=== PATIENT | female | born 1945 | race Caucasian/White ===

== ENCOUNTER 2016-06-21 12:54 | Inpatient (IN) | payer MEDICARE, BC ==
[2016-06-21] MEDS ORDERED: IBUPROFEN 200 MG TAB PO STA (13:28)
[2016-06-21] MEDS ORDERED: ACETAMINOPHEN IV (For NPO) 1,000 MG in EMPTY BAG 1 BAG IVPB STA (13:37)
--- NOTE | 2016-06-21 13:37 | ED ---
General Adult HPI <Kaushal Boogie - Last Filed: 06/21/16 14:31> - General Source: patient, RN notes reviewed Mode of arrival: ambulatory Limitations: no limitations <Bree Isaac - Last Filed: 06/21/16 15:24> - General Chief complaint: Upper Respiratory Infection Stated complaint: Weakness Time Seen by Provider: 06/21/16 13:13 - History of Present Illness Initial comments: 71-year-old female presents with cough and sore throat. Patient states this started on 06/17/2016 and has gotten worse. Patient has been on a course of amoxicillin for this that was prescribed by [facility]. At [facility] visit the patient was swabbed for strep throat and this was negative. Patient currently has 6 days left of her amoxicillin. Patient has also been trying DayQuil and Mucinex with no improvement of symptoms. Patient has been taking Tylenol for fever symptoms. Patient states all she has been doing is sleeping. Patient also admits to nausea, vomiting and diarrhea. Patient denies hematochezia or hematemesis. Patient states she has been falling more frequently. Patient denies dizziness but states she loses her balance. Patient denies loss of consciousness or hitting her head. Patient denies any recent chest pain, abdominal pain, back pain, numbness, tingling, hematuria, headache, or visual changes, or any other complaints. (Bree Isaac) - Related Data Home Medications Medication Instructions Recorded Confirmed Amoxicillin 500 mg PO BID 06/21/16 06/21/16 D-Methorphan/Acetamin/Doxylamn 1 cap PO Q6H PRN 06/21/16 06/21/16 [Vicks Nyquil Liquicaps] D-Methorphan/PE/Acetaminophen 1 cap PO Q6H PRN 06/21/16 06/21/16 [Vicks Dayquil Liquicaps] Diphenox-Atrop 2.5-0.025 mg 1 tab PO QID PRN 06/21/16 06/21/16 [Lomotil] Promethazine HCl/Codeine 5 ml PO Q4H PRN 06/21/16 06/21/16 [Promethazine-Codeine Syrup] Allergies Allergy/AdvReac Type Severity Reaction Status Date / Time No Known Allergies Allergy Verified 06/21/16 13:51 Review of Systems ROS Other: All systems not noted in ROS Statement are negative. <Kaushal Boogie - Last Filed: 06/21/16 14:31> ROS Other: All systems not noted in ROS Statement are negative. <Bree Isaac - Last Filed: 06/21/16 15:24> ROS Statement: Those systems with pertinent positive or pertinent negative responses have been documented in the HPI. (KeaganKaushal) (Bree Isaac) Past Medical History Past Medical History: Hypertension History of Any Multi-Drug Resistant Organisms: None Reported Past Surgical History: Adenoidectomy, Appendectomy, Cholecystectomy, Hysterectomy, Tonsillectomy Additional Past Surgical History / Comment(s): right ankle Past Psychological History: No Psychological Hx Reported Smoking Status: Never smoker Past Alcohol Use History: Occasional Past Drug Use History: None Reported <Bree Isaac - Last Filed: 06/21/16 15:24> General Exam <Kaushal Boogie - Last Filed: 06/21/16 14:31> Limitations: no limitations <Bree Isaac - Last Filed: 06/21/16 15:24> - General Exam Comments Initial Comments: General: The patient is awake and alert, in no distress, and does not appear acutely ill. Eye: Pupils are equal, round and reactive to light, extra-ocular movements are intact. No nystagmus. There is normal conjunctiva bilaterally. No signs of icterus. Ears: TMs pink and pearly with intact cone light bilaterally. Normal external ear canals. Nose: White drainage present bilaterally, nasal turbinates are slightly erythematous. No pain with palpation of the maxillary or frontal sinuses. Mouth and throat: There are moist mucous membranes and no oral lesions. Neck: The neck is supple, there is no tenderness or JVD. Cardiovascular: There is a tachycardic rate and regular rhythm. No murmur, rub or gallop is appreciated. Respiratory: Rales heard to upper right lung roa, breath sounds are equal. No wheezes, stridor, or rhonchi. Gastrointestinal: Soft, non-distended, non-tender abdomen without masses or organomegaly noted. There is no rebound or guarding present. No CVA tenderness. Bowel sounds are unremarkable. Musculoskeletal: Normal ROM, no tenderness. Strength 5/5. Sensation intact. Radial pulses equal bilaterally 2+. Neurological: A&O x 3. CN II-XII intact, There are no obvious motor or sensory deficits. Coordination appears grossly intact. Speech is normal. Skin: Skin is warm and dry and no rashes or lesions are noted. Psychiatric: Cooperative, appropriate mood & affect, normal judgment. (Bree Isaac) EKG Findings - EKG Comments: EKG Findings:: EKG done at 1430 showing sinus tachycardia with premature atrial complexes. The rate 10 2 bpm, AK interval 1:30, QRS duration 92, QTc 474. No acute ST changes. <Bree Isaac - Last Filed: 06/21/16 15:24> Medical Decision Making - Lab Data Result diagrams: 06/21/16 13:35 06/21/16 13:35 <Kaushal Boogie - Last Filed: 06/21/16 14:31> - Lab Data Result diagrams: 06/21/16 13:35 06/21/16 13:35 <Bree Isaac - Last Filed: 06/21/16 15:24> - Medical Decision Making I evaluated the patient at bedside. Faint crepitant rales appreciated right side. Patient's been sick for 2 days. Febrile today at 102. Pulse ox 90% on room air. Patient's blood pressures systolic 160. Chest x-ray was done and reviewed by radiologist his findings are the lungs are clear and there is no pneumothorax, pleural effusion or focal pneumonia. Mild hypertrophic changes in the spine. Right perihilar and upper lobe area of consolidation noted. Impression; right perihilar and upper lobe area of infiltrate or neoplasm. Follow-up to resolution. As read by Dr. Roth I discussed the case with Dr. No, the patient's attending. Patient be admitted to his service started and continued on vancomycin and Levaquin per sepsis protocol. He requests consultation from Dr. Ruby, pulmonary medicine. Dr. Boogie (Kaushal Boogie) 71-year-old female who presents with cough. On physical exam there are faint rales in the upper lung roa. Respiratory rate is 22. Patient is a fever of 102. HEENT exam is within normal limits. Chest x-ray was done and reviewed showing: Right perihilar and upper lobe area of infiltrate or neoplasm. Follow-up to resolution. Report read by Dr. Roth. Labs were done on patient revealing elevated white blood cell count. Patient has elevated creatinine kinase cardiac enzymes and troponins are negative. Patient was given fluids and ofirmev for fever, and started on oxygen for decreasing O2 saturation. Patient was started on IV Levaquin and vancomycin. EKG done at 1430 showing sinus tachycardia with premature atrial complexes. The rate 102 bpm, AK interval 1:30, QRS duration 92, QTc 474. No acute ST changes. Discussed with patient and family results of x-ray. Patient will be admitted as an inpatient. Discussed this case with attending physician Dr. Boogie who agrees with plan stated above. (Bree Isaac) - Lab Data Lab Results 06/21/16 06/21/16 06/21/16 Range/Units 13:35 13:35 13:35 WBC 11.1 H (3.8-10.6) k/uL RBC 4.66 (3.80-5.40) m/uL Hgb 14.4 (11.4-16.0) gm/dL Hct 41.7 (34.0-46.0) % MCV 89.3 (80.0-100.0) fL MCH 30.9 (25.0-35.0) pg MCHC 34.6 (31.0-37.0) g/dL RDW 12.9 (11.5-15.5) % Plt Count 138 L (150-450) k/uL Neutrophils % 85 % Lymphocytes % 7 % Monocytes % 5 % Eosinophils % 0 % Basophils % 1 % Neutrophils # 9.5 H (1.3-7.7) k/uL Lymphocytes # 0.8 L (1.0-4.8) k/uL Monocytes # 0.6 (0-1.0) k/uL Eosinophils # 0.0 (0-0.7) k/uL Basophils # 0.1 (0-0.2) k/uL PT (9.0-12.0) sec INR (<1.1) APTT (22.0-30.0) sec Sodium 136 L (137-145) mmol/L Potassium 3.4 L (3.5-5.1) mmol/L Chloride 96 L (98-107) mmol/L Carbon Dioxide 26 (22-30) mmol/L Anion Gap 14 mmol/L BUN 16 (7-17) mg/dL Creatinine 0.83 (0.52-1.04) mg/dL Est GFR (MDRD) Af Amer >60 (>60 ml/min/1.73 sqM) Est GFR (MDRD) Non-Af >60 (>60 ml/min/1.73 sqM) Glucose 142 H (74-99) mg/dL Plasma Lactic Acid Brandt 1.8 (0.7-2.0) mmol/L Calcium 8.6 (8.4-10.2) mg/dL Total Bilirubin 0.8 (0.2-1.3) mg/dL AST 52 H (14-36) U/L ALT 56 H (9-52) U/L Alkaline Phosphatase 65 (38-126) U/L Total Creatine Kinase (30-135) U/L CK-MB (CK-2) (0.0-2.4) ng/mL CK-MB (CK-2) Rel Index Troponin I (0.000-0.034) ng/mL Total Protein 6.4 (6.3-8.2) g/dL Albumin 3.7 (3.5-5.0) g/dL 06/21/16 06/21/16 Range/Units 13:35 13:35 WBC (3.8-10.6) k/uL RBC (3.80-5.40) m/uL Hgb (11.4-16.0) gm/dL Hct (34.0-46.0) % MCV (80.0-100.0) fL MCH (25.0-35.0) pg MCHC (31.0-37.0) g/dL RDW (11.5-15.5) % Plt Count (150-450) k/uL Neutrophils % % Lymphocytes % % Monocytes % % Eosinophils % % Basophils % % Neutrophils # (1.3-7.7) k/uL Lymphocytes # (1.0-4.8) k/uL Monocytes # (0-1.0) k/uL Eosinophils # (0-0.7) k/uL Basophils # (0-0.2) k/uL PT 11.3 (9.0-12.0) sec INR 1.1 (<1.1) APTT 25.9 (22.0-30.0) sec Sodium (137-145) mmol/L Potassium (3.5-5.1) mmol/L Chloride (98-107) mmol/L Carbon Dioxide (22-30) mmol/L Anion Gap mmol/L BUN (7-17) mg/dL Creatinine (0.52-1.04) mg/dL Est GFR (MDRD) Af Amer (>60 ml/min/1.73 sqM) Est GFR (MDRD) Non-Af (>60 ml/min/1.73 sqM) Glucose (74-99) mg/dL Plasma Lactic Acid Brandt (0.7-2.0) mmol/L Calcium (8.4-10.2) mg/dL Total Bilirubin (0.2-1.3) mg/dL AST (14-36) U/L ALT (9-52) U/L Alkaline Phosphatase (38-126) U/L Total Creatine Kinase 1065 H (30-135) U/L CK-MB (CK-2) 2.4 (0.0-2.4) ng/mL CK-MB (CK-2) Rel Index 0.2 Troponin I 0.021 (0.000-0.034) ng/mL Total Protein (6.3-8.2) g/dL Albumin (3.5-5.0) g/dL (Kaushal Boogie) Disposition <Kaushal Boogie - Last Filed: 06/21/16 14:31> Decision Time: 14:59 <Bree Isaac - Last Filed: 06/21/16 15:24> Clinical Impression: Pneumonia Disposition: ADMITTED IP TO THIS [facility] Referrals: Carson No MD [Primary Care Provider] - 1-2 days
[2016-06-21] MEDS ORDERED: ONDANSETRON 4 MG/2 ML VIAL IVP STA (13:43)
[2016-06-21] MEDS: SODIUM CHLORIDE 0.9% 1,000 ML IV SCH (13:44)
[2016-06-21] MEDS ORDERED: IPRATROPIUM-ALBUTEROL 3 ML NEB INHALATION STA (13:57)
[2016-06-21] MEDS ORDERED: LEVOFLOXACIN 750MG-D5W PMX 750 MG in DEXTROSE/WATER 1 150ML.BAG IVPB STA (13:59)
--- NOTE | 2016-06-21 13:59 | XR ---
EXAMINATION TYPE: XR chest 2V DATE OF EXAM: 06/21/2016 1:51 PM COMPARISON: NONE HISTORY: Shortness of breath FINDINGS: The lungs are clear and there is no pneumothorax, pleural effusion, or focal pneumonia. Mild hypertr ophic change of the spine. Right perihilar and upper lobe area of consolidation noted. IMPRESSION: 1. Right perihilar and upper lobe area of infiltrate or neoplasm. Follow-up to resolution.
[2016-06-21] MEDS ORDERED: SODIUM CHLORIDE 0.9% 500 ML IV ONE (14:03)
[2016-06-21] MEDS ORDERED: IV VANCOMYCIN PER PHARMACY 1 EACH MISC MISCELLANE PRN ×3 (14:04→14:54)
[2016-06-21 14:13] LABS: Basophils # (A) 0.1 k/uL (0-0.2); Basophils % (A) 1 %; CH 31.3; CHCM 35.2; Eosinophils % (A) 0 %; HCT 41.7 % (34.0-46.0); HDW 2.78; HGB 14.4 gm/dL (11.4-16.0); Luc # (Auto) 0.21; Luc % (Auto) 2; Lymphocytes # (A) 0.8 k/uL (1.0-4.8); Lymphocytes % (A) 7 %; MCH 30.9 pg (25.0-35.0); MCHC 34.6 g/dL (31.0-37.0); MCV 89.3 fL (80.0-100.0); Mean Platelet Volume 8.4; Monocytes # (A) 0.6 k/uL (0-1.0); Monocytes % (A) 5 %; Neutrophils # (A) 9.5 k/uL (1.3-7.7); Neutrophils % (A) 85 %; RBC 4.66 m/uL (3.80-5.40); RDW 12.9 % (11.5-15.5); WBC 11.1 k/uL (3.8-10.6); WBC (Perox) 11.85
[2016-06-21 14:23] LABS: ALT 56 U/L (9-52); AST 52 U/L (14-36); Alkaline Phosphatase 65 U/L (38-126); Anion Gap 14 mmol/L; Blood Urea Nitrogen 16 mg/dL (7-17); Calcium 8.6 mg/dL (8.4-10.2); Carbon Dioxide 26 mmol/L (22-30); Chloride 96 mmol/L (98-107); Glucose 142 mg/dL (74-99); Non-African American GFR(MDRD) >60 (>60 ml/min/1.73 sqM); Potassium 3.4 mmol/L (3.5-5.1); Sodium 136 mmol/L (137-145); Total Bilirubin 0.8 mg/dL (0.2-1.3); Total Protein 6.4 g/dL (6.3-8.2)
[2016-06-21 14:30] LABS: INR 1.1 (<1.1); Partial Thromboplastin Time 25.9 sec (22.0-30.0); Prothrombin Time 11.3 sec (9.0-12.0)
[2016-06-21] MEDS ORDERED: VANCOMYCIN 1,500 MG in SODIUM CHLORIDE 0.9% 250 ML IVPB ONE (14:30)
[2016-06-21] MEDS ORDERED: ACETAMINOPHEN TAB 325 MG TAB PO PRN (14:40)
[2016-06-21] MEDS ORDERED: CALCIUM CARBONATE 500 MG CHEWABLE PO PRN (14:40)
[2016-06-21] MEDS ORDERED: NALOXONE 0.4 MG/ML 1 ML VIAL IV PRN (14:40)
[2016-06-21] MEDS ORDERED: PROCHLORPERAZINE 5 MG TAB PO PRN (14:40)
[2016-06-21 14:48] LABS: Creatine Kinase MB 2.4 ng/mL (0.0-2.4); Troponin I 0.021 ng/mL (0.000-0.034)
[2016-06-21] MEDS ORDERED: POTASSIUM CHLORIDE ER 20 MEQ TAB.ER PO STA (16:27)
--- NOTE | 2016-06-21 16:27 | P.CNPUL ---
History of Present Illness Consult date: 06/21/16 Reason for consult: pneumonia Chief complaint: Fever, cough History of present illness: This is a 71-year-old female who presented to the emergency department complaining of fever, cough, shortness of breath. The patient states she has been sick since . She went to urgent care and received amoxicillin and has taken it for 6 days. She is not feeling any better. She denies any sick contacts. She is a lifelong never smoker. She has no history of asthma or COPD. She uses no inhalers or nebulizer at home. She was found to have an oxygen saturation of 90% in the emergency room. She also had associated sore throat and sinus congestion. She did receive her flu vaccine this year and pneumonia vaccine within 2 years. Review of Systems All systems: negative Past Medical History Past Medical History: Hypertension History of Any Multi-Drug Resistant Organisms: None Reported Past Surgical History: Adenoidectomy, Appendectomy, Cholecystectomy, Hysterectomy, Tonsillectomy Additional Past Surgical History / Comment(s): right ankle Past Psychological History: No Psychological Hx Reported Smoking Status: Never smoker Past Alcohol Use History: Occasional Past Drug Use History: None Reported Medications and Allergies Home Medications Medication Instructions Recorded Confirmed Type Amoxicillin 500 mg PO BID 06/21/16 06/21/16 History D-Methorphan/Acetamin/Doxylamn 1 cap PO Q6H PRN 06/21/16 06/21/16 History [Vicks Nyquil Liquicaps] D-Methorphan/PE/Acetaminophen 1 cap PO Q6H PRN 06/21/16 06/21/16 History [Vicks Dayquil Liquicaps] Diphenox-Atrop 2.5-0.025 mg 1 tab PO QID PRN 06/21/16 06/21/16 History [Lomotil] Promethazine HCl/Codeine 5 ml PO Q4H PRN 06/21/16 06/21/16 History [Promethazine-Codeine Syrup] Allergies Allergy/AdvReac Type Severity Reaction Status Date / Time No Known Allergies Allergy Verified 06/21/16 13:51 Physical Exam Osteopathic Statement: *. No significant issues noted on an osteopathic structural exam other than those noted in the History and Physical/Consult. Vitals: Vital Signs Temp Pulse Pulse Resp BP BP Pulse Ox 06/21/16 15:54 98.7 F 99 18 140/72 96 06/21/16 15:14 99.2 F 101 H 18 141/82 97 Gen.: Patient is alert and oriented 3, no acute distress Cardiovascular: Regular rate and rhythm, S1/S2 Lungs: Coarse breath sounds bilaterally Abdomen: Soft nontender nondistended positive bowel sounds Extremities: No edema Results - Laboratory Findings CBC and BMP: 06/21/16 13:35 06/21/16 13:35 PT/INR, D-dimer PT 11.3 sec (9.0-12.0) 06/21/16 13:35 INR 1.1 (<1.1) 06/21/16 13:35 - Diagnostic Findings Chest x-ray: report reviewed, image reviewed Assessment and Plan Plan: Acute hypoxic respiratory failure Possible right middle lobe pneumonia SIRS with sepsis Cough Lifelong never smoker Dehydration Mild hypokalemia Slightly elevated transaminases Hyponatremia O2 to maintain saturation greater than or equal to 80% Antibiotics: Levaquin Bronchodilators DC Vanco, patient is community acquired pna DC Tylenol due to elevated LFTs IV fluid hydration Serial CXRc Monitor labs Replace potassium Sputum culture, blood culture Check influenza, Legionella, mycoplasma GI and DVT prophylaxis Incentive spirometry and pulmonary hygiene
[2016-06-21] MEDS ORDERED: ALBUTEROL NEBULIZED 2.5 MG/3 ML INHALATION PRN (17:20)
[2016-06-21] MEDS ORDERED: IPRATROPIUM 0.5 MG/2.5 ML NEBU INHALATION PRN (17:21)
[2016-06-21] MEDS ORDERED: guaiFENesin-DM 100-10MG/5ML 10 ML CUP PO PRN (17:22)
[2016-06-21] MEDS ORDERED: DIPHENOX-ATROP 2.5-0.025 MG 1 EACH TAB PO PRN (17:23)
[2016-06-21] MEDS ORDERED: IPRATROPIUM 0.5 MG/2.5 ML NEBU INHALATION SCH (20:00)
[2016-06-21] MEDS ORDERED: ALBUTEROL NEBULIZED 2.5 MG/3 ML INHALATION SCH (20:00)
[2016-06-21] MEDS: guaiFENesin-DM 100-10MG/5ML 10 ML CUP PO SCH (20:38)
[2016-06-21] MEDS: FAMOTIDINE 20 MG TAB PO SCH (20:39)
[2016-06-21] MEDS: IBUPROFEN 400 MG TAB PO PRN (20:58)
[2016-06-22] MEDS: SODIUM CHLORIDE 0.9% 1,000 ML IV SCH ×3 (00:30→20:13)
[2016-06-22] MEDS ORDERED: IPRATROPIUM-ALBUTEROL 3 ML NEB INHALATION PRN (04:05)
[2016-06-22] MEDS: IBUPROFEN 400 MG TAB PO PRN ×2 (04:27→20:13)
[2016-06-22] MEDS ORDERED: VANCOMYCIN 1,500 MG in SODIUM CHLORIDE 0.9% 250 ML IVPB SCH (06:00)
[2016-06-22 06:33] LABS: ALT 67 U/L (9-52); AST 73 U/L (14-36); Alkaline Phosphatase 54 U/L (38-126); Anion Gap 9 mmol/L; Blood Urea Nitrogen 15 mg/dL (7-17); Calcium 8.2 mg/dL (8.4-10.2); Carbon Dioxide 22 mmol/L (22-30); Chloride 107 mmol/L (98-107); Glucose 106 mg/dL (74-99); Non-African American GFR(MDRD) >60 (>60 ml/min/1.73 sqM); Potassium 3.9 mmol/L (3.5-5.1); Sodium 138 mmol/L (137-145); Total Bilirubin 0.7 mg/dL (0.2-1.3)
[2016-06-22 06:46] LABS: CHCM 34.1; HCT 37.5 % (34.0-46.0); HDW 2.84; HGB 12.7 gm/dL (11.4-16.0); MCH 30.9 pg (25.0-35.0); MCHC 33.9 g/dL (31.0-37.0); MCV 91.2 fL (80.0-100.0); Mean Platelet Volume 9.2; RBC 4.11 m/uL (3.80-5.40); RDW 12.9 % (11.5-15.5); WBC 11.3 k/uL (3.8-10.6)
[2016-06-22] MEDS: guaiFENesin-DM 100-10MG/5ML 10 ML CUP PO SCH ×2 (08:48→20:13)
[2016-06-22] MEDS: FAMOTIDINE 20 MG TAB PO SCH ×2 (08:48→20:13)
[2016-06-22] MEDS: LEVOFLOXACIN 750MG-D5W PMX 750 MG in DEXTROSE/WATER 1 150ML.BAG IVPB SCH (08:48)
[2016-06-22] MEDS: IPRATROPIUM-ALBUTEROL 3 ML NEB INHALATION SCH ×4 (08:50→19:46)
[2016-06-22 10:44] VITALS: BMI 29.2
[2016-06-22 12:16] LABS: Glucose,Whole Blood 92 mg/dL (75-99)
--- NOTE | 2016-06-22 14:22 | P.PN ---
Subjective Principal diagnosis: Pneumonia Patient seen and examined. Patient states she had a fever overnight. She is still wheezing and coughing. She is not yet feeling better. She is currently on room air. Objective - Vital Signs Vital signs: Vital Signs Temp 97.7 F 06/22/16 12:00 Pulse 96 06/22/16 13:17 Resp 19 06/22/16 13:17 BP 129/85 06/22/16 12:00 Pulse Ox 95 06/22/16 12:00 Intake & Output 06/21/16 06/22/16 06/22/16 18:59 06:59 18:59 Intake Total 120 240 Output Total 300 Balance -180 240 Weight 72.4 kg 72.4 kg Intake: Oral 120 240 Output: Urine 300 Other: Voiding Method Toilet Toilet # Voids 1 1 # Bowel Movements 1 - Exam Gen.: Patient is alert and oriented 3, no acute distress Cardiovascular: Regular rate and rhythm, S1/S2 Lungs: Coarse breath sounds bilaterally Abdomen: Soft nontender nondistended positive bowel sounds Extremities: No edema - Labs CBC & Chem 7: 06/22/16 05:53 06/22/16 05:53 Labs: Abnormal Lab Results - Last 24 Hours (Table) 06/22/16 06/22/16 Range/Units 05:53 05:53 WBC 11.3 H (3.8-10.6) k/uL Plt Count 111 L (150-450) k/uL Glucose 106 H (74-99) mg/dL Calcium 8.2 L (8.4-10.2) mg/dL AST 73 H (14-36) U/L ALT 67 H (9-52) U/L Total Protein 5.0 L (6.3-8.2) g/dL Albumin 2.8 L (3.5-5.0) g/dL Assessment and Plan Plan: Acute hypoxic respiratory failure Possible right middle lobe pneumonia SIRS with sepsis Cough Lifelong never smoker Dehydration Mild hypokalemia Slightly elevated transaminases Hyponatremia O2 to maintain saturation greater than or equal to 80% Antibiotics: Levaquin Bronchodilators DC Vanco, patient is community acquired pna DC Tylenol due to elevated LFTs IV fluid hydration Serial CXRc Monitor labs Replace potassium Sputum culture, blood culture Repeat CXR Check influenza, Legionella, mycoplasma GI and DVT prophylaxis Incentive spirometry and pulmonary hygiene
--- NOTE | 2016-06-22 14:50 | XR ---
EXAMINATION TYPE: XR chest 1V portable DATE OF EXAM: 06/22/2016 2:45 PM COMPARISON: 06/21/2016 HISTORY: Cough TECHNIQUE: Single frontal view of the chest is obtained. FINDINGS: There is an area of consolidation involving the right upper lobe which is stable or slight ly increased from the prior exam. Left lung remains clear. No pleural effusion or pneumothorax. Previ ous surgery involving the right upper quadrant of the abdomen. Arthropathy of the shoulders. IMPRESSION: 1. Right upper lobe pneumonia appears stable or slightly progressed.
[2016-06-22 17:46] LABS: Appearance,Urine Clear (Clear); Bacteria,Urine Rare /hpf; Bilirubin,Urine Negative (Negative); Glucose,Urine (UA) Negative (Negative); Ketones,Urine 2+ (Negative); Leukocyte Esterase,Urine Negative (Negative); Mucus,Urine Rare /hpf; Nitrite,Urine Negative (Negative); Particle Count 5759; Protein,Urine 1+ (Negative); RBC,Urine 1 /hpf (0-5); Squamous Epithelial Cell,Urine <1 /hpf (0-4); UA Billing (MACRO vs. MICRO) MICRO; Urobilinogen,Urine <2.0 mg/dL (<2.0); WBC,Urine 2 /hpf (0-5)
--- NOTE | 2016-06-22 17:53 | P.HPIM ---
History of Present Illness H&P Date: 06/22/16 Chief Complaint: Fever and shortness of breath. The patient is 71-year-old white female essentially went to urgent care Saturday and was given amoxicillin for perceived upper respiratory infection. She did not improve and started becoming weaker. Evaluation in the emergency room did show significant pneumonia. She is now admitted for appropriate treatment. Pulmonology has been consulted. She does feel as though she is stabilizing but has had no clinical significant improvement. Still significant dyspnea on exertion as stated. She is a nonsmoker. She denies any significant ethanol or substance abuse. She has not been "overdoing her activity." Review of Systems Constitutional: Reports chills, Reports fatigue, Reports fever Eyes: denies blurred vision, denies pain Ears, nose, mouth and throat: Denies headache, Denies sore throat Cardiovascular: Denies chest pain, Denies shortness of breath Respiratory: Reports congestion, Reports cough, Reports cough with sputum, Reports dyspnea Gastrointestinal: Denies abdominal pain, Denies diarrhea, Denies nausea, Denies vomiting Genitourinary: Denies dysuria, Denies hematuria Musculoskeletal: Denies myalgias Past Medical History Past Medical History: Hypertension Additional Past Medical History / Comment(s): STRESS INCONT OF URINE, "GETS LEGS CRAMPS" History of Any Multi-Drug Resistant Organisms: None Reported Past Surgical History: Adenoidectomy, Appendectomy, Cholecystectomy, Hysterectomy, Tonsillectomy Additional Past Surgical History / Comment(s): right ankle Past Anesthesia/Blood Transfusion Reactions: No Reported Reaction Past Psychological History: No Psychological Hx Reported Smoking Status: Never smoker Past Alcohol Use History: Occasional Past Drug Use History: None Reported - Past Family History Mother Family Medical History: Cancer Additional Family Medical History / Comment(s): LUNG CANCER Father Family Medical History: Cancer Medications and Allergies Home Medications Medication Instructions Recorded Confirmed Type D-Methorphan/Acetamin/Doxylamn 1 cap PO Q6H PRN 06/21/16 06/21/16 History [Vicks Nyquil Liquicaps] D-Methorphan/PE/Acetaminophen 1 cap PO Q6H PRN 06/21/16 06/21/16 History [Vicks Dayquil Liquicaps] Diphenox-Atrop 2.5-0.025 mg 1 tab PO QID PRN 06/21/16 06/21/16 History [Lomotil] Promethazine HCl/Codeine 5 ml PO Q4H PRN 06/21/16 06/21/16 History [Promethazine-Codeine Syrup] RX: Amoxicillin 500 mg PO BID 06/21/16 06/21/16 History Allergies Allergy/AdvReac Type Severity Reaction Status Date / Time No Known Allergies Allergy Verified 06/21/16 13:51 Physical Exam Vitals: Vital Signs Temp Pulse Pulse Resp BP Pulse Ox 06/22/16 16:42 98 06/22/16 16:29 94 06/22/16 15:27 98.3 F 104 H 18 162/68 95 06/22/16 13:17 96 19 06/22/16 12:00 97.7 F 100 16 129/85 95 06/22/16 09:00 98 06/22/16 08:52 97.7 F 88 16 137/58 100 06/22/16 08:45 96 06/22/16 04:00 102.3 F H 87 19 146/79 100 06/22/16 00:00 98.2 F 83 18 126/58 98 06/21/16 20:00 102.3 F H 103 H 18 164/69 96 06/21/16 19:24 100 06/21/16 19:12 100 Intake and Output 06/22/16 06/22/16 06/22/16 06:59 14:59 22:59 Intake Total 240 220 Output Total 300 Balance -60 220 Intake: Oral 240 220 Output: Urine 300 Other: Voiding Method Toilet Toilet Toilet # Voids 1 1 # Bowel Movements 1 Weight 72.4 kg 72.4 kg Patient Weight 06/23/16 06:59 Weight 72.4 kg - Constitutional General appearance: average body habitus - EENT Eyes: no abnormal pupil - Neck Neck: no lymphadenopathy - Respiratory Respiratory: right: rales - Cardiovascular Rhythm: regular Heart sounds: normal: S1, S2 - Gastrointestinal General gastrointestinal: soft, no tenderness - Integumentary Integumentary: no rash - Musculoskeletal Musculoskeletal: generalized weakness Results CBC & Chem 7: 06/22/16 05:53 06/22/16 05:53 Labs: Abnormal Lab Results - Last 24 Hours (Table) 06/22/16 06/22/16 06/22/16 Range/Units 05:53 05:53 17:15 WBC 11.3 H (3.8-10.6) k/uL Plt Count 111 L (150-450) k/uL Glucose 106 H (74-99) mg/dL Calcium 8.2 L (8.4-10.2) mg/dL AST 73 H (14-36) U/L ALT 67 H (9-52) U/L Total Protein 5.0 L (6.3-8.2) g/dL Albumin 2.8 L (3.5-5.0) g/dL Urine Protein 1+ H (Negative) Urine Blood Moderate H (Negative) Urine Bacteria Rare H (None) /hpf Urine Mucus Rare H (None) /hpf Chest x-ray: report reviewed Thrombosis Risk Factor Assmnt - Choose All That Apply Any of the Below Risk Factors Present?: Yes Each Factor Represents 1 point: Obesity (BMI >25), Serious lung disease incl. pneumonia (< 1month) Other Risk Factors: Yes Each Risk Factor Represents 2 Points: Age 61-74 years Other congenital or acquired thrombophilia - If yes, enter type in comment: No Thrombosis Risk Factor Assessment Total Risk Factor Score: 4 Thrombosis Risk Factor Assessment Level: Moderate Risk Assessment and Plan (1) Pneumonia Status: Acute (2) Hypertension Status: Acute (3) Hypertension Status: Acute Plan: Continue current regimen of antibiotic treatment. We'll give Ambien for insomnia as requested. Check CBC and CMP in a.m. Appreciate pulmonology input. Dr. Maria's group will be covering for the weekend.
[2016-06-23] MEDS: ZOLPIDEM 5 MG TAB PO PRN ×2 (00:30→20:48)
[2016-06-23] MEDS ORDERED: VANCOMYCIN 1,000 MG in SODIUM CHLORIDE 0.9% 250 ML IVPB STA (00:40)
[2016-06-23] MEDS ORDERED: IV VANCOMYCIN PER PHARMACY 1 EACH MISC MISCELLANE PRN (00:40)
[2016-06-23] MEDS: VANCOMYCIN 1,250 MG in SODIUM CHLORIDE 0.9% 250 ML IVPB SCH ×2 (02:36→17:59)
[2016-06-23] MEDS: SODIUM CHLORIDE 0.9% 1,000 ML IV SCH ×2 (06:36→16:53)
[2016-06-23 07:05] LABS: CH 30.7; CHCM 33.4; HCT 35.8 % (34.0-46.0); HDW 2.93; HGB 11.9 gm/dL (11.4-16.0); MCH 30.6 pg (25.0-35.0); MCHC 33.1 g/dL (31.0-37.0); MCV 92.4 fL (80.0-100.0); Mean Platelet Volume 9.2; RBC 3.87 m/uL (3.80-5.40); RDW 13.1 % (11.5-15.5); WBC 10.1 k/uL (3.8-10.6)
[2016-06-23] MEDS: IPRATROPIUM-ALBUTEROL 3 ML NEB INHALATION SCH ×4 (07:36→20:17)
[2016-06-23 07:42] LABS: ALT 71 U/L (9-52); AST 91 U/L (14-36); Alkaline Phosphatase 63 U/L (38-126); Anion Gap 8 mmol/L; Blood Urea Nitrogen 12 mg/dL (7-17); Calcium 8.5 mg/dL (8.4-10.2); Carbon Dioxide 27 mmol/L (22-30); Chloride 107 mmol/L (98-107); Glucose 96 mg/dL (74-99); Non-African American GFR(MDRD) >60 (>60 ml/min/1.73 sqM); Potassium 3.7 mmol/L (3.5-5.1); Sodium 142 mmol/L (137-145); Total Bilirubin 0.5 mg/dL (0.2-1.3)
[2016-06-23] MEDS: LEVOFLOXACIN 750MG-D5W PMX 750 MG in DEXTROSE/WATER 1 150ML.BAG IVPB SCH (08:42)
[2016-06-23] MEDS: FAMOTIDINE 20 MG TAB PO SCH ×2 (08:42→20:48)
[2016-06-23] MEDS: guaiFENesin-DM 100-10MG/5ML 10 ML CUP PO SCH ×2 (08:42→20:48)
[2016-06-23] MEDS: IBUPROFEN 400 MG TAB PO PRN ×2 (10:20→20:16)
--- NOTE | 2016-06-23 14:02 | P.PN ---
Subjective Principal diagnosis: Pneumonia Patient seen and examined. Patient had fever this morning. Patient was found to have gram-positive cocci in her blood. The patient states she is starting to feel better. She continues to cough. Objective - Vital Signs Vital signs: Vital Signs Temp 99.4 F 06/23/16 12:00 Pulse 98 06/23/16 12:00 Resp 18 06/23/16 12:00 BP 154/77 06/23/16 12:00 Pulse Ox 96 06/23/16 12:00 Intake & Output 06/22/16 06/23/16 06/23/16 18:59 06:59 18:59 Intake Total 460 100 240 Output Total 300 625 Balance 160 -525 240 Weight 72.4 kg 72.3 kg Intake: Oral 460 100 240 Output: Urine 300 625 Other: Voiding Method Toilet Toilet Toilet # Voids 1 1 1 # Bowel Movements 1 1 - Exam Gen.: Patient is alert and oriented 3, no acute distress Cardiovascular: Regular rate and rhythm, S1/S2 Lungs: Coarse breath sounds bilaterally Abdomen: Soft nontender nondistended positive bowel sounds Extremities: No edema - Labs CBC & Chem 7: 06/23/16 06:14 06/23/16 06:14 Labs: Abnormal Lab Results - Last 24 Hours (Table) 06/22/16 06/23/16 06/23/16 Range/Units 17:15 06:14 06:14 Plt Count 108 L (150-450) k/uL AST 91 H (14-36) U/L ALT 71 H (9-52) U/L Total Protein 5.0 L (6.3-8.2) g/dL Albumin 2.6 L (3.5-5.0) g/dL Urine Protein 1+ H (Negative) Urine Ketones 2+ H (Negative) Urine Blood Moderate H (Negative) Urine Bacteria Rare H (None) /hpf Urine Mucus Rare H (None) /hpf Microbiology - Last 24 Hours (Table) 06/22/16 05:53 Blood Culture Gram Stain - Preliminary Blood 06/22/16 16:25 Gram Stain - Preliminary Sputum 06/22/16 17:15 Urine Culture - Preliminary Urine,Voided 06/22/16 05:53 Blood Culture - Preliminary Blood Assessment and Plan Plan: Acute hypoxic respiratory failure Right upper lobe pneumonia, community-acquired Gram-positive cocci bacteremia SIRS with sepsis Cough Lifelong never smoker Dehydration Mild hypokalemia Slightly elevated transaminases Hyponatremia O2 to maintain saturation greater than or equal to 80% Antibiotics: Levaquin and vancomycin Consult infectious diseases Bronchodilators IV fluid hydration Serial CXRc Monitor labs Replace potassium Sputum culture, blood culture Check influenza negative, Legionella pending, mycoplasma pending GI and DVT prophylaxis Incentive spirometry and pulmonary hygiene
[2016-06-23] MEDS: SYMBICORT 160-4.5 MCG INHALER INHALATION SCH (20:17)
[2016-06-23] MEDS: HEPARIN SODIUM,PORCINE 5,000 UNIT/ML 1 ML VIAL SQ SCH (20:48)
[2016-06-23] MEDS: AZITHROMYCIN 500 MG in SODIUM CHLORIDE 0.9% 250 ML IVPB SCH (20:49)
[2016-06-24] MEDS: PANTOPRAZOLE 40 MG TABLET PO SCH (06:42)
[2016-06-24] MEDS: SODIUM CHLORIDE 0.9% 1,000 ML IV SCH ×4 (06:42→20:37)
[2016-06-24 07:38] LABS: Basophils % (A) 0 %; CH 30.6; CHCM 33.3; Eosinophils # (A) 0.1 k/uL (0-0.7); Eosinophils % (A) 1 %; HCT 33.3 % (34.0-46.0); HDW 2.97; HGB 11.3 gm/dL (11.4-16.0); Luc # (Auto) 0.22; Luc % (Auto) 3; Lymphocytes # (A) 1.2 k/uL (1.0-4.8); Lymphocytes % (A) 17 %; MCH 31.4 pg (25.0-35.0); MCHC 33.9 g/dL (31.0-37.0); MCV 92.4 fL (80.0-100.0); Mean Platelet Volume 9.9; Monocytes # (A) 0.4 k/uL (0-1.0); Monocytes % (A) 6 %; Neutrophils # (A) 4.9 k/uL (1.3-7.7); Neutrophils % (A) 73 %; RBC 3.61 m/uL (3.80-5.40); RDW 13.3 % (11.5-15.5); WBC 6.8 k/uL (3.8-10.6); WBC (Perox) 7.08
[2016-06-24 07:52] LABS: Anion Gap 10 mmol/L; Blood Urea Nitrogen 9 mg/dL (7-17); Calcium 8.1 mg/dL (8.4-10.2); Carbon Dioxide 24 mmol/L (22-30); Chloride 110 mmol/L (98-107); Glucose 94 mg/dL (74-99); Non-African American GFR(MDRD) >60 (>60 ml/min/1.73 sqM); Potassium 3.4 mmol/L (3.5-5.1); Sodium 144 mmol/L (137-145)
[2016-06-24] MEDS ORDERED: LEVOFLOXACIN 750 MG TAB PO SCH (09:00)
[2016-06-24] MEDS: IPRATROPIUM-ALBUTEROL 3 ML NEB INHALATION SCH ×6 (09:18→20:17)
[2016-06-24] MEDS: SYMBICORT 160-4.5 MCG INHALER INHALATION SCH ×2 (09:20→20:17)
--- NOTE | 2016-06-24 10:13 | PN ---
DATE OF SERVICE: 06/23/2016 I am covering for Dr. No. This 71-year-old woman who was admitted with fever and shortness of breath was thought to have right middle lobe pneumonia. The patient also running fever. Yesterday patient started on broad-spectrum IV antibiotics. Dr. Ruby is following the patient closely. The most recent chest x-ray as mentioned showed possible right middle and upper lobe pneumonias. PAST MEDICAL HISTORY: Reviewed. REVIEW OF SYSTEMS: CARDIOVASCULAR: As mentioned earlier. RESPIRATORY: As mentioned earlier. GI: No nausea. : No dysuria. NERVOUS SYSTEM: No numbness or weakness. Current medications are reviewed and include: 1. DuoNeb q.i.d. and p.r.n. 2. TUMS q.4. 3. Lomotil 1 q.i.d. p.r.n. 4. Pepcid 20 mg p.o. b.i.d. 5. Robitussin. 6. Motrin 400 mg q.6. 7. Levaquin 750 daily. 8. Narcan 0.2 q.2 p.r.n. 9. Compazine. 10. Vancomycin. 11. Ambien. PHYSICAL EXAMINATION: The patient is alert and oriented x3. Pulse 98, blood pressure 154/77, respirations 18, temperature 99.4, pulse ox 96% on room air. HEENT: Conjunctivae normal. NECK: No jugular venous distention. CARDIOVASCULAR: S1 and S2, muffled. RESPIRATORY: Breath sounds diminished at the bases. Bilateral scattered rhonchi and crackles. ABDOMEN: Soft, nontender. No mass palpable. LEGS: No edema, no swelling. NERVOUS SYSTEM: Higher function as mentioned. Moves all four limbs. No focal motor deficits. LYMPHATIC: No lymphadenopathy in the neck, axillae or groin. SKIN: No ulcer, rash or bleeding. LABS: WBC 10.1, platelets 108, AST 91, ALT 71. 2+ ketones. Influenza negative. ASSESSMENT: 1. Right upper lobe pneumonia, possibly community acquired with acute hypoxic respiratory failure, present on admission with possible sepsis. 2. Gram-positive bacteremia. 3. Hypertension. 4. Dehydration present on admission. 5. Increased AST, ALT; possibly mild acute hepatitis. 6. Mild hypoalbuminemia. 7. Thrombocytopenia . 8. Increased WBC, present on admission. 9. Nonsmoker. 10. History of adenoidectomy. 11. History of cholecystectomy. 12. FULL CODE. RECOMMENDATIONS AND DISCUSSION: This 71-year-old woman who presented with multiple complex medical issues, we will monitor the patient closely. Continue the current medications. Continue symptomatic treatment. Will continue the bronchodilators. Continue with empiric antibiotics. Vancomycin has been initiated. Chest x-ray was personally reviewed. I recommend intravenous Rocephin and Zithromax. Continue to monitor. Further recommendations to follow. Obtain cultures as well. MTDD
[2016-06-24] MEDS: HEPARIN SODIUM,PORCINE 5,000 UNIT/ML 1 ML VIAL SQ SCH ×2 (10:39→21:13)
[2016-06-24] MEDS: guaiFENesin-DM 100-10MG/5ML 10 ML CUP PO SCH ×2 (10:39→21:14)
[2016-06-24] MEDS: FAMOTIDINE 20 MG TAB PO SCH (10:39)
[2016-06-24] MEDS: VANCOMYCIN 1,250 MG in SODIUM CHLORIDE 0.9% 250 ML IVPB SCH (10:40)
[2016-06-24] MEDS: AZITHROMYCIN 500 MG in SODIUM CHLORIDE 0.9% 250 ML IVPB SCH (15:01)
[2016-06-24] MEDS ORDERED: POTASSIUM CHLORIDE ER 20 MEQ TAB.ER PO STA (15:32)
--- NOTE | 2016-06-24 15:34 | P.PN ---
Subjective Principal diagnosis: Pneumonia Patient seen and examined with family at bedside. Patient states she's starting to feel better. She has not had fevers overnight. She states her breathing and her cough are starting to improve. Objective - Vital Signs Vital signs: Vital Signs Temp 97.8 F 06/24/16 09:15 Pulse 84 06/24/16 12:20 Resp 16 06/24/16 12:20 BP 147/68 06/24/16 12:20 Pulse Ox 97 06/24/16 12:20 Intake & Output 06/23/16 06/24/16 06/24/16 18:59 06:59 18:59 Intake Total 892 1000 590 Output Total 450 Balance 892 1000 140 Weight 72 kg Intake: IV 1000 Sodium Chloride 0.9% 1, 1000 000 ml @ 100 mls/hr IV . Q10H [facility] Rx#:[id number] Oral 892 590 Output: Urine 450 Other: Voiding Method Toilet Toilet Toilet # Voids 2 3 400 # Bowel Movements 1 1 - Exam Gen.: Patient is alert and oriented 3, no acute distress Cardiovascular: Regular rate and rhythm, S1/S2 Lungs: Coarse breath sounds bilaterally Abdomen: Soft nontender nondistended positive bowel sounds Extremities: No edema - Labs CBC & Chem 7: 06/24/16 06:18 06/24/16 06:18 Labs: Abnormal Lab Results - Last 24 Hours (Table) 06/24/16 06/24/16 Range/Units 06:18 06:18 RBC 3.61 L (3.80-5.40) m/uL Hgb 11.3 L (11.4-16.0) gm/dL Hct 33.3 L (34.0-46.0) % Plt Count 118 L (150-450) k/uL Potassium 3.4 L (3.5-5.1) mmol/L Chloride 110 H (98-107) mmol/L Calcium 8.1 L (8.4-10.2) mg/dL Microbiology - Last 24 Hours (Table) 06/22/16 16:25 Gram Stain - Final Sputum Sputum Culture - Final 06/22/16 17:15 Urine Culture - Final Urine,Voided 06/22/16 05:53 Blood Culture Gram Stain - Preliminary Blood Blood Culture - Preliminary Coagulase Negative Staph Assessment and Plan Plan: Acute hypoxic respiratory failure Right upper lobe pneumonia, community-acquired Coag negative staph bacteremia SIRS with sepsis Cough Lifelong never smoker Dehydration Mild hypokalemia Slightly elevated transaminases Hyponatremia O2 to maintain saturation greater than or equal to 80% Antibiotics: Azithro/Rocephin and vancomycin Consult infectious diseases Bronchodilators IV fluid hydration Serial CXR Decrease IV fluids Monitor labs Replace potassium Sputum culture, blood culture Check influenza negative, Legionella pending, mycoplasma pending GI and DVT prophylaxis Incentive spirometry and pulmonary hygiene
--- NOTE | 2016-06-24 18:37 | PN ---
DATE OF SERVICE: 06/24/2016 I am covering for Dr. No. This 71-year-old woman was admitted with right upper lobe pneumonia, also had features of possible SIRS. The patient is feeling slightly better today. Afebrile. Patient on broad spectrum IV antibiotics. No chest pain, no palpitation no fever. On exam, alert and oriented x3. Pulse 95, blood pressure 150/78, respirations 18, temperature 97.8, pulse ox 98% on room air. HEENT: Conjunctivae normal. NECK: No jugular venous distention. HEART: S1 and S2, muffled. RESPIRATORY: Breath sounds diminished at the bases. Scattered rhonchi, no crackles. Respiratory wheezing. ABDOMEN: Soft, no tenderness. EXTREMITIES: Legs no edema, no swelling. LABS: Potassium 3.4. Other labs are noted. ASSESSMENT: 1. Right upper lobe pneumonia, possibly community acquired with acute hypoxic respiratory failure, present on admission with possible sepsis. 2. Gram-positive bacteremia with coagulase-negative staph. 3. Hypertension. 4. Dehydration present on admission. 5. Increased AST and ALT, possible mild acute hepatitis. 6. Hypoalbuminemia. 7. Thrombocytopenia. 8. Increased WBC present on admission. 9. Nonsmoker. 10. History of adenoidectomy. 11. History of cholecystectomy. 12. FULL CODE. Recommendations and discussion: Current medications, continue symptomatic treatment, continue broad spectrum antibiotics. Closely follow with Dr. nilay and Dr. No to follow. [facility]ITAL[facility]
[2016-06-24] MEDS: ZOLPIDEM 5 MG TAB PO PRN (21:17)
--- NOTE | 2016-06-24 22:27 | P.CONS ---
History of Present Illness - Reason for Consult Consult date: 06/24/16 - Chief Complaint pneumonia - History of Present Illness 71-year-old female presents with ongoing fever associated with cough generalized malaise and fatigue and shortness of breath. Patient relates that she was see at the local urgent care. There she was given amoxicillin and respiratory treatments.Because she was not improving she presented to the emergency center where she was found evidence of multilobar pneumonia. With evidence of ongoing pneumonia as well as a positive blood culture infectious diseases consultation was requested. This was relates that she is feeling slightly better today. Her fever started to improve this evening. She slightly less short of breath. She's having cough and wheezing. It is not having significant sputum production. She does not have hemoptysis. She generalized malaise was able to navigate to the restroom without difficulties. She's having no further chills or rigors. Was having those at home. Review of Systems HEENT:Denies headache or acute visual change. Denies sinus or mouth discomforts. Denies neck stiffness or pain. Denies significant oral cavity pain. Denies difficulty on swallowing. Lungs: as noted as positive shortness of breath Cardiovascular: Denies chest pain, chest wall pain, orthopnea, dyspnea on exertion, syncope Gastrointestinal:Denies nausea, vomiting, diarrhea, constipation, hematemesis, melena, hematochezia. No no significant change of bowel habit noticed. Musculoskeletal: denies significant myalgias or arthralgias. No new joint swelling. Denies new back pain. Skin: Denies new rash or lesions. No new ulcers or wounds are related.. Neuro: Denies headache or visual change. Denies any new onset weakness or difficulty with ambulation. Denies falls or seizures. Psychiatric:Denies anxiety or depression. Endocrine: significant fatigue without significant change of weight Past Medical History Past Medical History: Hypertension Additional Past Medical History / Comment(s): STRESS INCONT OF URINE, "GETS LEGS CRAMPS" History of Any Multi-Drug Resistant Organisms: None Reported Past Surgical History: Adenoidectomy, Appendectomy, Cholecystectomy, Hysterectomy, Tonsillectomy Additional Past Surgical History / Comment(s): right ankle Past Anesthesia/Blood Transfusion Reactions: No Reported Reaction Past Psychological History: No Psychological Hx Reported Additional Psychological History / Comment(s): . has adult children. retired. no experience. no travel. no new animal exposures Smoking Status: Never smoker Past Alcohol Use History: Occasional Past Drug Use History: None Reported - Past Family History Mother Family Medical History: Cancer Additional Family Medical History / Comment(s): LUNG CANCER Father Family Medical History: Cancer Medications and Allergies Home Medications and Allergies Comment(s): Current Medications Albuterol/Ipratropium (Duoneb 0.5 Mg-3 Mg/3 Ml Soln) 3 ml INHALATION RT-QID [facility] Last Admin: 06/24/16 20:17 Dose: 3 ml Albuterol/Ipratropium (Duoneb 0.5 Mg-3 Mg/3 Ml Soln) 3 ml INHALATION RT-Q2H PRN PRN Reason: Shortness Of Breath Or Wheezing Budesonide/Formoterol Fumarate (Symbicort 160-4.5 Mcg Inhaler) 2 puff INHALATION RT-BID [facility] Last Admin: 06/24/16 20:17 Dose: 2 puff Calcium Carbonate/Glycine (Tums) 1,000 mg PO Q4HR PRN PRN Reason: Dyspepsia Diphenoxylate HCl/Atropine (Lomotil) 1 each PO QID PRN PRN Reason: Diarrhea Guaifenesin/Dextromethorphan (Robitussin Dm) 5 ml PO BID [facility] Last Admin: 06/24/16 21:14 Dose: 5 ml Heparin Sodium (Porcine) (Heparin) 5,000 unit SQ Q12HR [facility] Last Admin: 06/24/16 21:13 Dose: 5,000 unit Sodium Chloride (Saline 0.9%) 1,000 mls @ 40 mls/hr IV .Q24H [facility] Last Admin: 06/24/16 20:37 Dose: Not Given Azithromycin 500 mg/ Sodium (Chloride) 250 mls @ 125 mls/hr IVPB DAILY@1200 [facility] Last Admin: 06/24/16 15:01 Dose: 125 mls/hr Ceftriaxone Sodium 1,000 mg/ (Sodium Chloride) 50 mls @ 100 mls/hr IVPB Q24HR [facility] Last Admin: 06/24/16 10:38 Dose: 100 mls/hr Ibuprofen (Motrin) 400 mg PO Q6HR PRN PRN Reason: Mild Pain or Fever > 100.5 Last Admin: 06/23/16 20:16 Dose: 400 mg Naloxone HCl (Narcan) 0.2 mg IV Q2M PRN PRN Reason: Opioid Reversal Pantoprazole Sodium (Protonix) 40 mg PO AC-BRKFST [facility] Last Admin: 06/24/16 06:42 Dose: 40 mg Prochlorperazine Maleate (Compazine) 5 mg PO Q8HR PRN PRN Reason: Nausea And Vomiting Zolpidem Tartrate (Ambien) 5 mg PO HS PRN PRN Reason: Insomnia Last Admin: 06/24/16 21:17 Dose: 5 mg Home Medications Medication Instructions Recorded Confirmed Type Amoxicillin 500 mg PO BID 06/21/16 06/21/16 History D-Methorphan/Acetamin/Doxylamn 1 cap PO Q6H PRN 06/21/16 06/21/16 History [Vicks Nyquil Liquicaps] D-Methorphan/PE/Acetaminophen 1 cap PO Q6H PRN 06/21/16 06/21/16 History [Vicks Dayquil Liquicaps] Diphenox-Atrop 2.5-0.025 mg 1 tab PO QID PRN 06/21/16 06/21/16 History [Lomotil] Promethazine HCl/Codeine 5 ml PO Q4H PRN 06/21/16 06/21/16 History [Promethazine-Codeine Syrup] Allergies Allergy/AdvReac Type Severity Reaction Status Date / Time No Known Allergies Allergy Verified 06/21/16 13:51 Physical Exam Vitals: Vital Signs Temp Pulse Pulse Resp BP Pulse Ox 06/24/16 20:26 84 06/24/16 20:20 84 06/24/16 16:42 82 18 139/71 98 06/24/16 12:20 84 16 147/68 97 06/24/16 09:15 97.8 F 95 18 150/70 98 06/24/16 04:00 98.0 F 93 18 150/72 97 06/24/16 00:00 98.1 F 97 17 151/82 94 L Intake and Output 06/24/16 06/24/16 06/24/16 06:59 14:59 22:59 Intake Total 1000 590 380 Output Total 450 Balance 1000 140 380 Intake: IV 1000 Sodium Chloride 0.9% 1, 1000 000 ml @ 100 mls/hr IV . Q10H [facility] Rx#:[id number] Oral 590 380 Output: Urine 450 Other: Voiding Method Toilet Toilet Toilet # Voids 3 400 # Bowel Movements 1 Weight 72 kg pleasant 71-year-old woman in no phoebe distress HEENT: Anicteric conjunctiva are pink and moist nasal mucosa grossly intact without significant lesions, there is no thrush. Neck: The neck is supple without significant lymphadenopathy or thyromegaly. Lungs: there is symmetrical air entry. Th Left chest with just some few wheez No dullness or changes of egophony. Heart: Regular rate and rhythm with an audible S1-S2, no S3 no S4. There is no significant murmur click or rub, PMI was nondisplaced. Abdomen: Positive bowel sounds soft and nontender without palpable masses or organomegaly. There was no guarding or rebound. Extremities: The upper extremities have excellent pulses they are symmetric, no significant petechiae or telangiectasia. No splinter hemorrhages were noted. The lower extremities are free from significant edema. The peripheral pulses were 2+ and symmetric. Neuro: Awake alert oriented to person place and time. There are no acute new gross focal sensory motor deficits. Results CBC & Chem 7: 06/24/16 06:18 06/24/16 06:18 Labs: Abnormal Lab Results - Last 24 Hours (Table) 06/24/16 06/24/16 Range/Units 06:18 06:18 RBC 3.61 L (3.80-5.40) m/uL Hgb 11.3 L (11.4-16.0) gm/dL Hct 33.3 L (34.0-46.0) % Plt Count 118 L (150-450) k/uL Potassium 3.4 L (3.5-5.1) mmol/L Chloride 110 H (98-107) mmol/L Calcium 8.1 L (8.4-10.2) mg/dL Microbiology - Last 24 Hours (Table) 06/22/16 05:53 Blood Culture Gram Stain - Final Blood Blood Culture - Final Staphylococcus epidermidis 06/22/16 16:25 Gram Stain - Final Sputum Sputum Culture - Final 06/22/16 17:15 Urine Culture - Final Urine,Voided Laboratory Results WBC 6.8 k/uL (3.8-10.6) 06/24/16 06:18 RBC 3.61 m/uL (3.80-5.40) L 06/24/16 06:18 Hgb 11.3 gm/dL (11.4-16.0) L 06/24/16 06:18 Hct 33.3 % (34.0-46.0) L 06/24/16 06:18 MCV 92.4 fL (80.0-100.0) 06/24/16 06:18 MCH 31.4 pg (25.0-35.0) 06/24/16 06:18 MCHC 33.9 g/dL (31.0-37.0) 06/24/16 06:18 RDW 13.3 % (11.5-15.5) 06/24/16 06:18 Plt Count 118 k/uL (150-450) L 06/24/16 06:18 Neutrophils % 73 % 06/24/16 06:18 Lymphocytes % 17 % 06/24/16 06:18 Monocytes % 6 % 06/24/16 06:18 Eosinophils % 1 % 06/24/16 06:18 Basophils % 0 % 06/24/16 06:18 Neutrophils # 4.9 k/uL (1.3-7.7) 06/24/16 06:18 Lymphocytes # 1.2 k/uL (1.0-4.8) 06/24/16 06:18 Monocytes # 0.4 k/uL (0-1.0) 06/24/16 06:18 Eosinophils # 0.1 k/uL (0-0.7) 06/24/16 06:18 Basophils # 0.0 k/uL (0-0.2) 06/24/16 06:18 PT 11.3 sec (9.0-12.0) 06/21/16 13:35 INR 1.1 (<1.1) 06/21/16 13:35 APTT 25.9 sec (22.0-30.0) 06/21/16 13:35 Sodium 144 mmol/L (137-145) 06/24/16 06:18 Potassium 3.4 mmol/L (3.5-5.1) L 06/24/16 06:18 Chloride 110 mmol/L (98-107) H 06/24/16 06:18 Carbon Dioxide 24 mmol/L (22-30) 06/24/16 06:18 Anion Gap 10 mmol/L 06/24/16 06:18 BUN 9 mg/dL (7-17) 06/24/16 06:18 Creatinine 0.68 mg/dL (0.52-1.04) 06/24/16 06:18 Est GFR (MDRD) Af Amer >60 (>60 ml/min/1.73 sqM) 06/24/16 06:18 Est GFR (MDRD) Non-Af >60 (>60 ml/min/1.73 sqM) 06/24/16 06:18 Glucose 94 mg/dL (74-99) 06/24/16 06:18 POC Glucose (mg/dL) 92 mg/dL (75-99) 06/22/16 11:45 POC Glu Weather Observer Letty Emmanuel 06/22/16 11:45 Plasma Lactic Acid Brandt 1.8 mmol/L (0.7-2.0) 06/21/16 13:35 Calcium 8.1 mg/dL (8.4-10.2) L 06/24/16 06:18 Total Bilirubin 0.5 mg/dL (0.2-1.3) 06/23/16 06:14 AST 91 U/L (14-36) H 06/23/16 06:14 ALT 71 U/L (9-52) H 06/23/16 06:14 Alkaline Phosphatase 63 U/L (38-126) 06/23/16 06:14 Total Creatine Kinase 1065 U/L (30-135) H 06/21/16 13:35 CK-MB (CK-2) 2.4 ng/mL (0.0-2.4) 06/21/16 13:35 CK-MB (CK-2) Rel Index 0.2 06/21/16 13:35 Troponin I 0.021 ng/mL (0.000-0.034) 06/21/16 13:35 Total Protein 5.0 g/dL (6.3-8.2) L 06/23/16 06:14 Albumin 2.6 g/dL (3.5-5.0) L 06/23/16 06:14 Cortisol 48 ug/dL 06/21/16 13:35 Urine Color Yellow 06/22/16 17:15 Urine Appearance Clear (Clear) 06/22/16 17:15 Urine pH 6.0 (5.0-8.0) 06/22/16 17:15 Ur Specific Clay 1.020 (1.001-1.035) 06/22/16 17:15 Urine Protein 1+ (Negative) H 06/22/16 17:15 Urine Glucose (UA) Negative (Negative) 06/22/16 17:15 Urine Ketones 2+ (Negative) H 06/22/16 17:15 Urine Blood Moderate (Negative) H 06/22/16 17:15 Urine Nitrate Negative (Negative) 06/22/16 17:15 Urine Bilirubin Negative (Negative) 06/22/16 17:15 Urine Urobilinogen <2.0 mg/dL (<2.0) 06/22/16 17:15 Ur Leukocyte Esterase Negative (Negative) 06/22/16 17:15 Urine RBC 1 /hpf (0-5) 06/22/16 17:15 Urine WBC 2 /hpf (0-5) 06/22/16 17:15 Ur Squamous Epith Cells <1 /hpf (0-4) 06/22/16 17:15 Urine Bacteria Rare /hpf (None) H 06/22/16 17:15 Urine Mucus Rare /hpf (None) H 06/22/16 17:15 Influenza Type A RNA Not Detected (Not Detectd) 06/21/16 16:54 Influenza Type B (PCR) Not Detected (Not Detectd) 06/21/16 16:54 Microbiology 06/21/16 13:35 Blood Blood Culture - Preliminary No Growth after 72 hours 06/22/16 05:53 Blood Blood Culture Gram Stain - Final 06/22/16 05:53 Blood Blood Culture - Final Staphylococcus epidermidis 06/22/16 16:25 Sputum Gram Stain - Final 06/22/16 16:25 Sputum Sputum Culture - Final 06/22/16 17:15 Urine,Voided Urine Culture - Final 06/22/16 05:53 Blood Blood Culture - Preliminary Assessment and Plan (1) Pneumonia Narrative/Plan: Pleasant 71-year-old woman presents to Hospital with evidence of a several-day history of significant fever with cough and sputum production. Seen in outpatient clinic and treated with amoxicillin respiratory treatments but has had no improvement. As he was admitted through the emergency center with evidence of multi lobar pneumonia. With current antibiotic therapy she is having some improvement. She still having cough and wheezing and responding to respiratory treatments. Is being followed by pulmonary critical care. With her improvement there is no thought of need of bronchoscopy. However there is no evidence of a possible culture. It is noted to be coagulase-negative staph in both cultures are from the same moment of dry also constantly is 1 culture. Follow cultures obtained and negative so far. Vancomycin therapy was started and is discontinued at this time. Antibiotic therapy with ceftriaxone and azithromycin are being utilized and are appropriate at this point in time. Evaluation for Legionella and mycoplasma are in process. Given her elevated liver function tests and her lack of response to amoxicillin therapy would make Legionella of concern. Follow blood culture is negative at this timeLeukocytosis is improving. Fevers improving. She is feeling somewhat better overall. As she improves in the next day or so be become a candidate for outpatient oral antibiotic therapy. Above testing will further help direct course of therapy. Status: Acute (2) Bacteremia due to coagulase-negative Staphylococcus Status: Acute (3) Fever Status: Acute (4) Leukocytosis Status: Acute
[2016-06-24] MEDS: IBUPROFEN 400 MG TAB PO PRN (23:25)
[2016-06-25] MEDS ORDERED: VANCOMYCIN TROUGH DUE 1 EACH MISC MISCELLANE ONE (01:00)
[2016-06-25] MEDS: PANTOPRAZOLE 40 MG TABLET PO SCH (06:45)
[2016-06-25] MEDS: IPRATROPIUM-ALBUTEROL 3 ML NEB INHALATION SCH ×2 (07:21→11:09)
[2016-06-25 07:51] LABS: Aty Lym Flag Slight; CH 30.7; CHCM 33.4; HCT 34.2 % (34.0-46.0); HDW 2.97; HGB 11.2 gm/dL (11.4-16.0); MCH 30.3 pg (25.0-35.0); MCHC 32.8 g/dL (31.0-37.0); MCV 92.4 fL (80.0-100.0); Mean Platelet Volume 8.7; RBC 3.69 m/uL (3.80-5.40); RDW 13.3 % (11.5-15.5); WBC 6.8 k/uL (3.8-10.6); WBC (Perox) 7.27
[2016-06-25 07:52] LABS: Anion Gap 8 mmol/L; Blood Urea Nitrogen 7 mg/dL (7-17); Calcium 8.3 mg/dL (8.4-10.2); Carbon Dioxide 28 mmol/L (22-30); Chloride 110 mmol/L (98-107); Glucose 98 mg/dL (74-99); Non-African American GFR(MDRD) >60 (>60 ml/min/1.73 sqM); Potassium 3.7 mmol/L (3.5-5.1); Sodium 146 mmol/L (137-145)
[2016-06-25] MEDS: guaiFENesin-DM 100-10MG/5ML 10 ML CUP PO SCH (09:22)
[2016-06-25] MEDS: HEPARIN SODIUM,PORCINE 5,000 UNIT/ML 1 ML VIAL SQ SCH (09:22)
[2016-06-25 09:24] LABS: Add Differential Manual Differential
[2016-06-25 09:28] LABS: Band Neutrophils % 0.5 %; Manual Review Performed; Metamyelocytes % 0.5 %; Nucleated Red Blood Cells 0 /100 WBC (0-0); Total Cells Counted 200
[2016-06-25 09:29] LABS: RBC Morphology Normal
[2016-06-25] MEDS: SYMBICORT 160-4.5 MCG INHALER INHALATION SCH (11:09)
--- NOTE | 2016-06-25 11:59 | P.DS ---
Providers Date of admission: 06/21/16 14:40 Attending physician: Carson No Consults: 06/23/16 14:01 Consult Physician Routine Consulting Provider: Ramu Jacques Consult Reason/Comments: bacteremia, G+ cocci Do you want consulting provider notified?: Yes Primary care physician: Carson No - Discharge Diagnosis(es) (1) Pneumonia Current Visit: Yes Status: Acute (2) Hypertension Current Visit: Yes Status: Acute (3) Hypertension Current Visit: Yes Status: Acute Hospital Course: This is a discharge summary 71-year-old white female essentially admitted for pneumonia. She is doing quite well and now ambulating tolerate diet without difficulty. We will go ahead and discharge her on appropriate antibiotic treatment and follow-up with her in about one week. She is stable from a prognostic indicator and have told her to basically rest. Plan - Discharge Summary New Discharge Prescriptions: Cefuroxime Axetil [Ceftin] 500 mg PO BID #14 tab Discharge Medication List D-Methorphan/Acetamin/Doxylamn [Vicks Nyquil Liquicaps] 1 cap PO Q6H PRN [History] D-Methorphan/PE/Acetaminophen [Vicks Dayquil Liquicaps] 1 cap PO Q6H PRN [History] Diphenox-Atrop 2.5-0.025 mg [Lomotil] 1 tab PO QID PRN 06/21/16 [History] Promethazine HCl/Codeine [Promethazine-Codeine Syrup] 5 ml PO Q4H PRN 06/21/16 [ History] Cefuroxime Axetil [Ceftin] 500 mg PO BID #14 tab 06/25/16 [Rx] Ibuprofen [Motrin] 400 mg PO Q6HR PRN #0 tab 06/25/16 [Rx] Follow up Appointment(s)/Referral(s): Carson No MD [Primary Care Provider] - 1 Week Discharge Disposition: HOME SELF-CARE
[2016-06-25 12:59] VITALS: RESP 18
[2016-06-25 13:11] VITALS: BP 157/67; PULSE 77; TEMP 96.7
[2016-06-26 05:36] LABS: Mycoplasma IgG Antibody (EIA) 1.87 INDEX (<=0.90); Mycoplasma IgM Antibody 0.51 INDEX (<=0.90)
--- NOTE | 2016-07-02 13:38 | CDI ---
In responding to this query, please exercise your independent professional judgment. The [facility] Coding Staff and Clinical Documentation Specialists appreciate your assistance in clarifying documentation, maintaining compliance with coding guidelines, accurately documenting patients condition and capturing severity of illness. The fact that a question is asked does not imply that any particular answer is desired or expected. Communication forms are a method of clarifying documentation and are not made part of the Legal Health Record. Thank you in advance for your clarification. Last Revision, April 2015 [employer] [address] [facility] [place] [address] Documentation Clarification Form Date: 07/02/2016 1:11:00 PM From: Pam Marlene Phone: Admit Date: 06/21/2016 2:40:00 PM Patient Name: Loulou Goldberg Visit Number: [id number] Discharge Date: Dr. Carson No SIRS with possible sepsis is documented in the progress notes and in Dr. Dumont 's consult note. Patient history/risk factors: Patient had pneumonia and acute respiratory failure. Lab findings: Blood culture revealed gram positive bacteremia, WBC 11.1 on admit, Lactic acid 1.8 Vital Signs: T. 102.3 on admit, P 104 on day of admit, R. 22 on admit Treatment: Azythromycin IV, Ceftriaxone IV, Levofloxacin IV In your professional opinion, can you please clarify if Sepsis was Ruled In or Ruled Out? Other Unable to determine Please document in your progress notes and discharge summary in order to capture severity of illness and risk of mortality. Include clinical findings that support your diagnosis. FYI: Press F11 to launch patient chart. Place X here if this finding has no clinical significance, is not applicable or if you are not able to provide any additional documentation. SARIAHD
== END 2016-06-25 13:14 | disposition home or self-care (01) | DRG 871 ==
LOC: EC 12:54 → 6SEL 14:40
PROVIDERS: ADMIT Family Medicine; ATTEND Family Medicine
DX: A41.89 Other specified sepsis (principal); J18.9 Pneumonia, unspecified organism; J96.01 Acute respiratory failure with hypoxia; E87.1 Hypo-osmolality and hyponatremia; D69.6 Thrombocytopenia, unspecified; E88.09 Other disorders of plasma-protein metabolism, not elsewhere classified; E86.0 Dehydration; I10 Essential (primary) hypertension; G47.00 Insomnia, unspecified; R29.6 Repeated falls; R79.89 Other specified abnormal findings of blood chemistry; J02.9 Acute pharyngitis, unspecified; E87.6 Hypokalemia
CPT/HCPCS: 36415; 71010; 71020; 80048; 80053; 81001; 82533; 82550; 82553; 83605; 84484; 85025; 85027; 85610; 85730; 86738; 87040; 87070; 87077; 87086; 87186; 87205; 87449; 87502; 93005; 94640; 94760; 96365; 96375; 99284

== ENCOUNTER 2017-07-22 14:07 | Emergency (ER) | payer MEDICARE, BC ==
[2017-07-22] MEDS ORDERED: HYDROmorphone 2 MG/ML 1 ML SYRINGE IM STA (14:47)
--- NOTE | 2017-07-22 14:52 | ED ---
Fall HPI - General Chief Complaint: Fall Stated Complaint: fall/shoulder injury Time Seen by Provider: 07/22/17 14:24 Source: patient, RN notes reviewed, old records reviewed Mode of arrival: ambulatory - History of Present Illness Initial Comments: This patient is a 72-year-old female presents emergency department today chief complaint of right shoulder pain. She reports she was shoveling the snow slipped and fell and injured her shoulder. She reports that she has no other injuries associated with the fall. No head injury or loss of consciousness or neck injury. Patient states that she is having severe pain with range of motion of her shoulder. Patient states that she came directly here. She is here with her granddaughter. She has not seen any wardrobe specialist in the past. - Related Data Home Medications Medication Instructions Recorded Confirmed D-Methorphan/PE/Acetaminophen 1 cap PO Q6H PRN 06/21/16 06/21/16 [Vicks Dayquil Liquicaps] Diphenox-Atrop 2.5-0.025 mg 1 tab PO QID PRN 06/21/16 06/21/16 [Lomotil] Dm/Acetaminophen/Doxylamine [Vicks 1 cap PO Q6H PRN 06/21/16 06/21/16 Nyquil Liquicaps] Promethazine HCl/Codeine 5 ml PO Q4H PRN 06/21/16 06/21/16 [Promethazine-Codeine Syrup] Previous Rx's Medication Instructions Recorded Cefuroxime Axetil [Ceftin] 500 mg PO BID #14 tab 06/25/16 Ibuprofen [Motrin] 400 mg PO Q6HR PRN #0 tab 06/25/16 HYDROcodone/APAP 5-325MG [[place] 1 tab PO Q6HR PRN #20 tab 07/22/17 5-325] Allergies Allergy/AdvReac Type Severity Reaction Status Date / Time No Known Allergies Allergy Verified 07/22/17 14:14 Review of Systems ROS Statement: Those systems with pertinent positive or pertinent negative responses have been documented in the HPI. ROS Other: All systems not noted in ROS Statement are negative. Past Medical History Past Medical History: Hypertension Additional Past Medical History / Comment(s): STRESS INCONT OF URINE, "GETS LEGS CRAMPS" History of Any Multi-Drug Resistant Organisms: None Reported Past Surgical History: Adenoidectomy, Appendectomy, Cholecystectomy, Hysterectomy, Tonsillectomy Additional Past Surgical History / Comment(s): right ankle Past Anesthesia/Blood Transfusion Reactions: No Reported Reaction Past Psychological History: No Psychological Hx Reported Smoking Status: Never smoker Past Alcohol Use History: Occasional Past Drug Use History: None Reported - Past Family History Mother Family Medical History: Cancer Additional Family Medical History / Comment(s): LUNG CANCER Father Family Medical History: Cancer General Exam - General Exam Comments Initial Comments: This patient is a 72-year-old female. No acute distress. Limitations: no limitations General appearance: alert, in no apparent distress Head exam: Present: atraumatic, normocephalic, normal inspection Eye exam: Present: normal appearance, PERRL, EOMI. Absent: scleral icterus, conjunctival injection, periorbital swelling ENT exam: Present: normal exam, mucous membranes moist Neck exam: Present: normal inspection. Absent: tenderness, meningismus, lymphadenopathy Respiratory exam: Present: normal lung sounds bilaterally. Absent: respiratory distress, wheezes, rales, rhonchi, stridor Cardiovascular Exam: Present: regular rate, normal rhythm, normal heart sounds. Absent: systolic murmur, diastolic murmur, rubs, gallop, clicks GI/Abdominal exam: Present: soft, normal bowel sounds. Absent: distended, tenderness, guarding, rebound, rigid Extremities exam: Present: normal inspection, full ROM, normal capillary refill. Absent: tenderness, pedal edema, joint swelling, calf tenderness Right Shoulder Exam: Present: tenderness, swelling. Absent: normal inspection, full ROM (Patient is unable able to do any flexion or abduction or extension of the shoulder due to pain.), abrasion, laceration, ecchymosis, deformity Upper Arm exam: Present: normal inspection, full ROM Elbow exam: Present: normal inspection, full ROM Forearm Wrist exam: Present: normal inspection, full ROM Vascular: Present: normal capillary refill Back exam: Present: normal inspection Neurological exam: Present: alert, oriented X3, CN II-XII intact Psychiatric exam: Present: normal affect, normal mood Skin exam: Present: warm, dry, intact, normal color. Absent: rash Course Vital Signs 07/22/17 07/22/17 14:12 16:01 Temperature 97.0 F L 97.9 F Pulse Rate 82 78 Respiratory 18 16 Rate Blood Pressure 224/95 179/84 O2 Sat by Pulse 98 99 Oximetry Medical Decision Making - Medical Decision Making This patient is a 72-year-old female presents emergency department today chief complaint of right shoulder pain. She reports she was shoveling the snow slipped and fell and injured her shoulder.Patient does have significant limited range of motion of the right shoulder. Patient shoulder x-ray was negative for any of us. I discussed that I'll put the patient in a sling. I discussed possibility of rotator cuff tear due to the mechanism of injury. Discuss you should follow up with wardrobe specialist. All questions were answered in return parameters were discussed. - Radiology Data Radiology results: report reviewed But shorter actually was reviewed and negative for any acute process. Disposition Clinical Impression: Injury of right rotator cuff, Fall Disposition: HOME SELF-CARE Condition: Good Instructions: Rotator Cuff Injury (ED), Fall Prevention for Older Adults (ED) Additional Instructions: Patient advised to take pain medication as prescribed. Remain in the splint. Ice the shoulder is much as possible. Follow-up with orthopedic within the next 1 to week. Return to emergency department if any alarming signs or symptoms occur. Prescriptions: HYDROcodone/APAP 5-325MG [[place] 5-325] 1 tab PO Q6HR PRN #20 tab PRN Reason: Pain Referrals: Carson No MD [Primary Care Provider] - 1-2 days Thomas Young MD [STAFF PHYSICIAN] - 1-2 days Time of Disposition: 15:52
--- NOTE | 2017-07-22 15:36 | XR ---
EXAMINATION TYPE: XR shoulder complete RT DATE OF EXAM: 07/22/2017 CLINICAL HISTORY: Pain after fall injury today. TECHNIQUE: Three views of the right shoulder are obtained. COMPARISON: None. FINDINGS: Osseous structures are demineralized. There is no acute fracture/dislocation evident in th e right shoulder. There is moderate joint space loss and spurring at acromioclavicular joint. There i s spur from the inferior medial humeral head. The visualized ribs are intact and unremarkable. IMPRESSION: There is no acute fracture or dislocation in the right shoulder.
[2017-07-22 16:03] VITALS: BP 179/84; PULSE 78; RESP 16; TEMP 97.9
== END 2017-07-22 16:01 | disposition home or self-care (01) ==
LOC: EC 14:07
DX: S46.001A Unspecified injury of muscle(s) and tendon(s) of the rotator cuff of right shoulder, initial encounter (principal); W00.0XXA Fall on same level due to ice and snow, initial encounter; Y93.H1 Activity, digging, shoveling and raking; Y92.009 Unspecified place in unspecified non-institutional (private) residence as the place of occurrence of the external cause
CPT/HCPCS: 73030; 99284; 96372; J1170

== ENCOUNTER 2019-12-09 08:10 | Day surgery (SDC) | payer MEDICARE, BC ==
[2019-12-08 09:49] VITALS: BMI 31.8
[~2019-12-09 08:10] MED LIST: LACTATED RINGERS 1,000 ML IV SCH
[2019-12-09 08:36] VITALS: TEMP 97.3
[2019-12-09 08:45] LABS: Glucose,Whole Blood 121 mg/dL (75-99)
[2019-12-09] MEDS ORDERED: PROPOFOL 10 MG/ML 20 ML VIAL IV ONE (08:48)
[2019-12-09] MEDS ORDERED: LIDOCAINE 1% INJ 10MG/ML (20 ML MDV) ONE (08:48)
--- NOTE | 2019-12-09 09:08 | P.PCN ---
Date of Procedure: 12/09/19 Procedure(s) Performed: Brief history: Patient is a pleasant 74-year-old white female scheduled for an elective upper endoscopy as well as colonoscopy as a part of evaluation of presents of GERD and screening for colorectal neoplasia. Procedure performed: Esophagogastroduodenoscopy with biopsy Colonoscopy Preoperative diagnosis: Long-standing history of GERD Screening for colon cancer Anesthesia: MAC Procedure: After informed consent was obtained from the patient was brought into the endoscopy unit and IV sedation was administered by anesthesia under continuous monitoring. Initially upper endoscopy was done. The Olympus GF 160 video endoscope was inserted inserted into the mouth and esophagus intubated without any difficulty and was gradually advanced into the stomach and duodenum and carefully examined. The bulb and second part of the duodenum appeared normal. The scope was then withdrawn into the stomach adequately insufflated with air and upon careful examination the antrum had mild gastritis and biopsies were done from this area. The body, cardia and fundus appeared normal. The scope was then withdrawn into the esophagus. Small sliding type hiatal hernia noted. The GE junction was located at 38 cm to the incisors. It appeared regular with superficial erosions consistent with LA grade A reflux esophagitis. Rest of the esophagus appeared normal. Patient tolerated the procedure well. At this time the patient continued to remain sedation. Initial digital rectal examination was normal. Olympus CF 160 video colonoscope was then inserted into the rectum and gradually advanced to the cecum without any difficulty. Careful examination was performed as the scope was gradually being withdrawn. The prep was excellent. The cecum, ascending colon, transverse colon, descending colon, sigmoid colon and rectum appeared normal. Retroflexion was performed in the rectum and no lesions were noted. Patient tolerated the procedure well. Impression: 1. Upper endoscopy revealed mild antral gastritis, small sliding-type well hernia and LA grade A reflux esophagitis 2. Colonoscopy was essentially within normal limits with no evidence of Recommendations: Findings of this examination were discussed with the patient as well as her family. She was advised to follow with the biopsy results. She was advised to continue with omeprazole 20 mg daily and follow antireflux measures. She can have a repeat screening colonoscopy in 10 years.
[2019-12-09 09:27] VITALS: BP 136/62; PULSE 72; RESP 18
== END 2019-12-09 09:54 | disposition home or self-care (01) ==
LOC: ORWHC2ENDO 08:10
PROVIDERS: ATTEND Internal Medicine Gastroenterology
DX: K29.50 Unspecified chronic gastritis without bleeding (principal); K44.9 Diaphragmatic hernia without obstruction or gangrene; K21.0 Gastro-esophageal reflux disease with esophagitis; K22.10 Ulcer of esophagus without bleeding; Z12.11 Encounter for screening for malignant neoplasm of colon; E11.9 Type 2 diabetes mellitus without complications; Z79.899 Other long term (current) drug therapy
CPT/HCPCS: 88305; 43239; J2001; J2704; G0121; 45378

== ENCOUNTER 2020-09-23 09:37 | Emergency (ER) | payer MEDICARE, BC ==
[2020-09-23 09:45] VITALS: RESP 18; TEMP 97.8
[2020-09-23] MEDS ORDERED: MECLIZINE 12.5 MG TAB PO STA (10:04)
[2020-09-23] MEDS ORDERED: SODIUM CHLORIDE 0.9% 1,000 ML IV STA (10:04)
[2020-09-23] MEDS ORDERED: ONDANSETRON 4 MG/2 ML VIAL IVP STA (10:05)
[2020-09-23 10:24] LABS: Basophils % (A) 0 %; Eosinophils # (A) 0.2 k/uL (0-0.7); Eosinophils % (A) 2 %; HCT 44.5 % (34.0-46.0); HGB 15.5 gm/dL (11.4-16.0); Lymphocytes # (A) 2.8 k/uL (1.0-4.8); Lymphocytes % (A) 28 %; MCH 32.6 pg (25.0-35.0); MCHC 34.9 g/dL (31.0-37.0); MCV 93.3 fL (80.0-100.0); Mean Platelet Volume 8.6; Monocytes # (A) 0.4 k/uL (0-1.0); Monocytes % (A) 4 %; Neutrophils # (A) 6.4 k/uL (1.3-7.7); Neutrophils % (A) 65 %; Platelet Count 252 k/uL (150-450); RBC 4.77 m/uL (3.80-5.40); RDW 12.5 % (11.5-15.5); WBC 9.9 k/uL (3.8-10.6)
[2020-09-23 10:32] LABS: ALT 16 U/L (4-34); AST 23 U/L (14-36); African American GFR (CKD) >90 (>60 ml/min/1.73 sqM); Albumin 4.3 g/dL (3.5-5.0); Alkaline Phosphatase 57 U/L (38-126); Anion Gap 7 mmol/L; Blood Urea Nitrogen 17 mg/dL (7-17); Calcium 9.8 mg/dL (8.4-10.2); Carbon Dioxide 26 mmol/L (22-30); Chloride 107 mmol/L (98-107); Glucose 114 mg/dL (74-99); Non-African American GFR(CKD) 89 (>60 ml/min/1.73 sqM); Potassium 3.8 mmol/L (3.5-5.1); Sodium 140 mmol/L (137-145); Total Bilirubin 0.6 mg/dL (0.2-1.3)
--- NOTE | 2020-09-23 10:37 | ED ---
Dizziness HPI - General Chief Complaint: Dizziness Stated Complaint: Hypertension Time Seen by Provider: 09/23/20 09:48 Source: patient Mode of arrival: ambulatory Limitations: no limitations - History of Present Illness Initial Comments: Patient is a 75-year-old female with history of diabetes, presenting to the emergency Department with complaints of lightheadedness since yesterday. Patient states 2 days ago she had episodes of nausea and vomiting that lasted for a few hours. Patient states then yesterday she was feeling a little bit lightheaded. She states she woke up feeling the same and decided to go to her PCPs office for a checkup. They said her blood pressure was 220/180 sent her into the ER for evaluation. Patient denies any chest pain or shortness of breath, no headaches, no falls or trauma. She denies any recent fevers or chil ls. She does feel little nausea today at this time, no dizziness at rest. She states she feels like it increases when she changes positions. She did eat a little bit today and yesterday. She denies any abdominal pain, no dysuria. She has no further complaints. Upon arrival to the ER, her blood pressures 163/79, rest of vitals are also normal. - Related Data Home Medications Medication Instructions Recorded Confirmed Multivitamins, Thera [Multivitamin 1 tab PO DAILY 12/08/19 09/23/20 (formulary)] Omeprazole 20 mg PO DAILY 12/08/19 09/23/20 Vitamin C/Biotin [Hair, Skin and 1 tab PO DAILY 12/08/19 09/23/20 Nails] metFORMIN HCL [Glucophage] 500 mg PO DAILY 12/24/19 09/23/20 Previous Rx's Medication Instructions Recorded Meclizine [Antivert] 25 mg PO BID PRN #20 tab 09/23/20 Allergies Allergy/AdvReac Type Severity Reaction Status Date / Time No Known Allergies Allergy Verified 09/23/20 10:52 Review of Systems ROS Statement: Those systems with pertinent positive or pertinent negative responses have been documented in the HPI. ROS Other: All systems not noted in ROS Statement are negative. Past Medical History Past Medical History: Diabetes Mellitus, GERD/Reflux, Hypertension, Osteoarthritis (OA), Pneumonia Additional Past Medical History / Comment(s): diarrhea, arthritis rt ankle, History of Any Multi-Drug Resistant Organisms: None Reported Past Surgical History: Adenoidectomy, Appendectomy, Breast Surgery, Cholecystectomy, Hysterectomy, Orthopedic Surgery, Tonsillectomy Additional Past Surgical History / Comment(s): right ankle ORIF/hardware later removed, breast reduction, rt carpal tunnel, bone spurs removed from both feet, rt shoulder rotator cuff Past Anesthesia/Blood Transfusion Reactions: No Reported Reaction Past Psychological History: No Psychological Hx Reported Smoking Status: Never smoker Past Alcohol Use History: Occasional Past Drug Use History: None Reported - Past Family History Mother Family Medical History: Cancer Additional Family Medical History / Comment(s): LUNG CANCER Father Family Medical History: Cancer Brother(s) Family Medical History: Cancer General Exam - General Exam Comments Initial Comments: GENERAL: Patient is well-developed and well-nourished. Patient is nontoxic and in no acute distress. HEAD: Atraumatic, normocephalic. EYES: Pupils equal round and reactive to light, extraocular movements intact, sclera anicteric, conjunctiva are normal. Eyelids were unremarkable. ENT: TMs normal, nares patent, oropharynx clear without exudates. Moist mucous membranes. NECK: Normal range of motion, supple without lymphadenopathy or JVD. LUNGS: Unlabored respirations. Breath sounds clear to auscultation bilaterally and equal. No wheezes rales or rhonchi. HEART: Regular rate and rhythm without murmurs, rubs or gallops. ABDOMEN: Soft, nontender, normoactive bowel sounds. No guarding, no rebound. No masses appreciated. : Deferred MUSCULOSKELETAL: Normal extremities with adequate strength and normal range of motion, no pitting or edema. No clubbing or cyanosis. NEUROLOGICAL: Patient is alert and oriented x 3. Motor and sensory are also intact. Cranial nerves II through XII grossly intact. Symmetrical smile. Normal speech, normal gait. PSYCH: Normal mood, normal affect. SKIN: Warm, Dry, normal turgor, no rashes or lesions noted. Limitations: no limitations Course Vital Signs 09/23/20 09/23/20 09/23/20 09:42 11:03 13:45 Temperature 97.8 F Pulse Rate 68 60 63 Respiratory 18 18 18 Rate Blood Pressure 163/79 173/76 165/80 O2 Sat by Pulse 100 99 98 Oximetry EKG Findings - EKG Comments: EKG Findings:: Normal sinus rhythm, inferior infarct age undetermined, no signs of acute ischemia. Ventricular rate 65, MD interval 122, QT 390. Medical Decision Making - Medical Decision Making Patient is a 75-year-old female with history of diabetes presenting with lightheadedness, dizziness since yesterday. She was sent in from her PCPs office for elevated blood pressure reading office. Her vitals are stable here. EKG shows no acute process. Exam reveals no acute process, no neuro deficits. Labs are within normal limits, negative troponin, urine does show 2+ ketones, no infection. CT of the brain shows no acute process. Patient received some fluids, Zofran and Antivert. She does feel well at rest, states she feels a little lightheaded walking to the restroom. Patient was discussed with Dr. Dorsey who also evaluated the patient and is okay with patient going home. Patient will have close follow-up with her family doctor and strict return parameters were discussed with the patient and she does verbalize understanding and in agreement with this plan of care. - Lab Data Result diagrams: 09/23/20 10:07 09/23/20 10:07 Lab Results 09/23/20 09/23/20 09/23/20 Range/Units 10:07 10:07 10:07 WBC 9.9 (3.8-10.6) k/uL RBC 4.77 (3.80-5.40) m/uL Hgb 15.5 (11.4-16.0) gm/dL Hct 44.5 (34.0-46.0) % MCV 93.3 (80.0-100.0) fL MCH 32.6 (25.0-35.0) pg MCHC 34.9 (31.0-37.0) g/dL RDW 12.5 (11.5-15.5) % Plt Count 252 (150-450) k/uL MPV 8.6 Neutrophils % 65 % Lymphocytes % 28 % Monocytes % 4 % Eosinophils % 2 % Basophils % 0 % Neutrophils # 6.4 (1.3-7.7) k/uL Lymphocytes # 2.8 (1.0-4.8) k/uL Monocytes # 0.4 (0-1.0) k/uL Eosinophils # 0.2 (0-0.7) k/uL Basophils # 0.0 (0-0.2) k/uL Sodium 140 (137-145) mmol/L Potassium 3.8 (3.5-5.1) mmol/L Chloride 107 (98-107) mmol/L Carbon Dioxide 26 (22-30) mmol/L Anion Gap 7 mmol/L BUN 17 (7-17) mg/dL Creatinine 0.63 (0.52-1.04) mg/dL Est GFR (CKD-EPI)AfAm >90 (>60 ml/min/1.73 sqM) Est GFR (CKD-EPI)NonAf 89 (>60 ml/min/1.73 sqM) Glucose 114 H (74-99) mg/dL Calcium 9.8 (8.4-10.2) mg/dL Total Bilirubin 0.6 (0.2-1.3) mg/dL AST 23 (14-36) U/L ALT 16 (4-34) U/L Alkaline Phosphatase 57 (38-126) U/L Troponin I (0.000-0.034) ng/mL Total Protein 7.0 (6.3-8.2) g/dL Albumin 4.3 (3.5-5.0) g/dL Urine Color Yellow Urine Appearance Clear (Clear) Urine pH 6.0 (5.0-8.0) Ur Specific [place] 1.018 (1.001-1.035) Urine Protein Negative (Negative) Urine Glucose (UA) Negative (Negative) Urine Ketones 2+ H (Negative) Urine Blood Negative (Negative) Urine Nitrite Negative (Negative) Urine Bilirubin Negative (Negative) Urine Urobilinogen <2.0 (<2.0) mg/dL Ur Leukocyte Esterase Trace H (Negative) Urine RBC <1 (0-5) /hpf Urine WBC 1 (0-5) /hpf Ur Squamous Epith Cells <1 (0-4) /hpf Urine Mucus Rare H (None) /hpf 09/23/20 Range/Units 10:07 WBC (3.8-10.6) k/uL RBC (3.80-5.40) m/uL Hgb (11.4-16.0) gm/dL Hct (34.0-46.0) % MCV (80.0-100.0) fL MCH (25.0-35.0) pg MCHC (31.0-37.0) g/dL RDW (11.5-15.5) % Plt Count (150-450) k/uL MPV Neutrophils % % Lymphocytes % % Monocytes % % Eosinophils % % Basophils % % Neutrophils # (1.3-7.7) k/uL Lymphocytes # (1.0-4.8) k/uL Monocytes # (0-1.0) k/uL Eosinophils # (0-0.7) k/uL Basophils # (0-0.2) k/uL Sodium (137-145) mmol/L Potassium (3.5-5.1) mmol/L Chloride (98-107) mmol/L Carbon Dioxide (22-30) mmol/L Anion Gap mmol/L BUN (7-17) mg/dL Creatinine (0.52-1.04) mg/dL Est GFR (CKD-EPI)AfAm (>60 ml/min/1.73 sqM) Est GFR (CKD-EPI)NonAf (>60 ml/min/1.73 sqM) Glucose (74-99) mg/dL Calcium (8.4-10.2) mg/dL Total Bilirubin (0.2-1.3) mg/dL AST (14-36) U/L ALT (4-34) U/L Alkaline Phosphatase (38-126) U/L Troponin I <0.012 (0.000-0.034) ng/mL Total Protein (6.3-8.2) g/dL Albumin (3.5-5.0) g/dL Urine Color Urine Appearance (Clear) Urine pH (5.0-8.0) Ur Specific [place] (1.001-1.035) Urine Protein (Negative) Urine Glucose (UA) (Negative) Urine Ketones (Negative) Urine Blood (Negative) Urine Nitrite (Negative) Urine Bilirubin (Negative) Urine Urobilinogen (<2.0) mg/dL Ur Leukocyte Esterase (Negative) Urine RBC (0-5) /hpf Urine WBC (0-5) /hpf Ur Squamous Epith Cells (0-4) /hpf Urine Mucus (None) /hpf Disposition Clinical Impression: Dehydration, Light headedness, Hypertension Disposition: HOME SELF-CARE Condition: Stable Instructions (If sedation given, give patient instructions): Dizziness (ED) Additional Instructions: Please return to the Emergency Department if symptoms worsen or any other concerns. Please follow up with your family doctor in 1-3 days. Prescriptions: Meclizine [Antivert] 25 mg PO BID PRN #20 tab PRN Reason: Vertigo Is patient prescribed a controlled substance at d/c from ED?: No Referrals: Jose Manning DO [Primary Care Provider] - 1-2 days Time of Disposition: 13:24
[2020-09-23 11:26] LABS: Appearance,Urine Clear (Clear); Bilirubin,Urine Negative (Negative); Blood,Urine Negative (Negative); Color,Urine Yellow; Glucose,Urine (UA) Negative (Negative); Ketones,Urine 2+ (Negative); Leukocyte Esterase,Urine Trace (Negative); Mucus,Urine Rare /hpf; Nitrite,Urine Negative (Negative); Protein,Urine Negative (Negative); RBC,Urine <1 /hpf (0-5); Specific Gravity,Urine 1.018 (1.001-1.035); Squamous Epithelial Cell,Urine <1 /hpf (0-4); Urobilinogen,Urine <2.0 mg/dL (<2.0); WBC,Urine 1 /hpf (0-5)
--- NOTE | 2020-09-23 12:58 | CT ---
EXAMINATION TYPE: CT brain wo con DATE OF EXAM: 09/23/2020 COMPARISON: None INDICATION: Dizziness DLP: 1051.4 mGycm, Automated exposure control for dose reduction was used. CONTRAST: None CT of the brain is performed utilizing 3 mm thick sections through the posterior fossa and 3 mm thick sections through the remaining calvarium. Study is performed within 24 hours of arrival to the hosp [facility]. No abnormal hyperdensity is present to suggest an acute intracranial hemorrhage. No mass lesion is evident. No acute infarcts are evident. There is some mild periventricular white matter hypodensity, likely on the basis of chronic white matter ischemic changes. Ventricles and sulci are appropriate for the patient age. Paranasal sinuses and mastoid air cells within the [id number] are clear. IMPRESSIONS: 1. Mild chronic appearing periventricular white matter ischemic changes. 2. No acute intracranial process
[2020-09-23 13:47] VITALS: BP 165/80; PULSE 63
== END 2020-09-23 13:48 | disposition home or self-care (01) ==
LOC: EC 09:37
DX: E86.0 Dehydration (principal); I10 Essential (primary) hypertension; R11.2 Nausea with vomiting, unspecified; E11.9 Type 2 diabetes mellitus without complications; K21.9 Gastro-esophageal reflux disease without esophagitis; M17.11 Unilateral primary osteoarthritis, right knee; Z79.84 Long term (current) use of oral hypoglycemic drugs; Z79.899 Other long term (current) drug therapy
CPT/HCPCS: 36415; 80053; 84484; 85025; 81001; 70450; 99284; 96374; 96361; J2405